=== PATIENT | female | born 1960 | race American Indian/Alaskan Native ===

== ENCOUNTER 2020-02-02 12:04 | Inpatient (IN) | payer MEDICARE, MEDICAID ==
[~2020-02-02 12:04] MED LIST: DIVA-112 PO; DIVA500T69 PO; FURO20 PO; GABA-1181 PO; LEVO100T13 PO; NICO7T TD; Paroxetine Hcl PO; TRAZ-252 PO
[2020-02-02] MEDS ORDERED: HALOPERIDOL 5 MG TABLET PO PRN (14:45)
[2020-02-02 14:53] VITALS: BP 138/78
[2020-02-02 16:38] VITALS: BP 100/62
[2020-02-02] MEDS ORDERED: PNEUMOCOCCAL VACCINE POLYVALENT 0.5 ML VIAL [PPSV23] IM ONE (17:15)
[2020-02-02] MEDS ORDERED: ONDANSETRON HCL 4 MG/2 ML VIAL IM PRN (21:15)
[2020-02-02] MEDS: ONDANSETRON HCL 4 MG TABLET PO PRN (21:22)
[2020-02-03 00:57] VITALS: BP 120/83
[2020-02-03] MEDS: ONDANSETRON HCL 4 MG TABLET PO PRN ×2 (06:52→17:25)
[2020-02-03 07:57] LABS: BASOPHILS % (AUTO) 0.9 % (0.0-2.0); EOSINOPHILS % (AUTO) 3.7 % (1.0-6.0); HEMATOCRIT 40.7 % (36-46); HEMOGLOBIN 13.1 g/dL (12.0-16.0); LYMPHOCYTES # (AUTO) 1.6 K/uL (1.0-4.8); LYMPHOCYTES % (AUTO) 26.3 % (22.0-44.0); MEAN CORPUSCULAR HEMOGLOBIN 30.2 pg (26.0-34.0); MEAN CORPUSCULAR HGB CONC 32.1 G/dL (31.0-37.0); MEAN CORPUSCULAR VOLUME 94 fL (80-100); MONOCYTES # (AUTO) 0.4 K/uL (0.1-1.0); MONOCYTES % (AUTO) 6.7 % (2.0-9.0); NEUTROPHILS # (AUTO) 3.7 K/uL (1.8-7.7); NEUTROPHILS % (AUTO) 62.4 % (40.0-70.0); PLATELET COUNT (AUTO) 240 K/uL (150-450); RED BLOOD CELL COUNT(AUTO) 4.33 MIL/uL (4.00-5.20); RED CELL DISTRIBUTION WIDTH 17.8 % (11.5-14.5)
[2020-02-03 08:06] LABS: HEMOGLOBIN A1C 5.2 % (3.8-5.6)
[2020-02-03 08:22] LABS: ALANINE AMINOTRANSFERASE 27 U/L (12-78); ALBUMIN 3.2 g/dL (3.4-5.0); ALKALINE PHOSPHATASE 76 U/L (46-116); ANION GAP 7 mmol/L (8-16); ASPARTATE AMINOTRANSFERASE 20 U/L (15-37); BILIRUBIN,TOTAL 0.2 mg/dL (0.1-1.0); CALCIUM, TOTAL 9.6 mg/dL (8.8-10.5); CARBON DIOXIDE 31 mmol/L (22-29); CHLORIDE 104 mmol/L (98-107); CHOL/HDL RATIO 2.4 (3.9-5.7); CHOLESTEROL 204 mg/dL (131-200); CREATININE 0.94 mg/dL (0.60-1.30); GLOMERULAR FILTR. RATE CALC > 60 mL/min (>60); GLUCOSE,RANDOM 94 mg/dL (70-110); HDL CHOLESTEROL 84 mg/dL (40-60); LDL CHOL (CALC.) 99 mg/dL (0-130); SODIUM SERUM 142 mmol/L (136-145); TOTAL PROTEIN, SERUM 7.1 g/dL (6.4-8.2); TRIGLYCERIDES 104 mg/dL (15-150); UREA NITROGEN, BLOOD 13 mg/dL (7-18)
[2020-02-03 08:30] VITALS: BP 144/79
[2020-02-03] MEDS: IBUPROFEN 600 MG TABLET PO PRN ×2 (10:28→22:22)
[2020-02-03] MEDS: LORazepam 2 MG TABLET PO PRN ×2 (10:28→17:25)
[2020-02-03 16:06] VITALS: BP 136/77
[2020-02-03] MEDS: OMEPRAZOLE 20 MG CAPSULE PO SCH (20:39)
[2020-02-04 04:14] VITALS: BP 126/72
[2020-02-04 07:03] VITALS: BP 128/92
[2020-02-04] MEDS: IBUPROFEN 600 MG TABLET PO PRN (07:05)
[2020-02-04] MEDS: LEVOTHYROXINE SODIUM 100 MCG TABLET PO SCH (07:16)
[2020-02-04 08:36] VITALS: BP 122/78
[2020-02-04] MEDS ORDERED: IBUPROFEN 600 MG TABLET PO SCH (09:00)
[2020-02-04] MEDS: GABAPENTIN 300 MG CAPSULE PO SCH ×3 (09:23→16:05)
[2020-02-04] MEDS: FUROSEMIDE 20 MG TABLET PO SCH (09:23)
[2020-02-04] MEDS: LORazepam 2 MG TABLET PO PRN (09:24)
[2020-02-04] MEDS: OMEPRAZOLE 20 MG CAPSULE PO SCH (09:24)
[2020-02-04] MEDS: DIVALPROEX SODIUM 500 MG ER TABLET PO SCH (16:05)
[2020-02-04] MEDS: IBUPROFEN 600 MG TABLET PO SCH ×2 (16:05→20:31)
[2020-02-04 16:08] VITALS: BP 115/77
[2020-02-04] MEDS: TraZODone HCL 50 MG TABLET PO SCH (20:31)
[2020-02-05] VITALS (11 sets, daily range): BP systolic 113–156; BP diastolic 63–85
[2020-02-05] MEDS: LEVOTHYROXINE SODIUM 100 MCG TABLET PO SCH (07:04)
[2020-02-05] MEDS: PARoxetine HCL 10 MG TABLET PO SCH (08:30)
[2020-02-05] MEDS: IBUPROFEN 600 MG TABLET PO SCH ×4 (08:31→20:41)
[2020-02-05] MEDS: OMEPRAZOLE 20 MG CAPSULE PO SCH (08:31)
[2020-02-05] MEDS: GABAPENTIN 300 MG CAPSULE PO SCH ×3 (08:31→16:40)
[2020-02-05] MEDS: ONDANSETRON HCL 4 MG TABLET PO PRN (08:31)
[2020-02-05] MEDS: DIVALPROEX SODIUM 500 MG ER TABLET PO SCH ×2 (08:31→16:40)
[2020-02-05] MEDS: FUROSEMIDE 20 MG TABLET PO SCH (08:39)
[2020-02-05] MEDS: LORazepam 2 MG TABLET PO PRN (10:14)
[2020-02-05] MEDS: TraZODone HCL 50 MG TABLET PO SCH (20:41)
[2020-02-06 05:52] VITALS: BP_SYST 111; BP_SYST 118; BP_DIAS 80; BP_DIAS 91
[2020-02-06] MEDS: LEVOTHYROXINE SODIUM 100 MCG TABLET PO SCH (06:53)
[2020-02-06] MEDS: OMEPRAZOLE 20 MG CAPSULE PO SCH (08:14)
[2020-02-06] MEDS: FUROSEMIDE 20 MG TABLET PO SCH (08:14)
[2020-02-06] MEDS: GABAPENTIN 300 MG CAPSULE PO SCH ×3 (08:14→16:41)
[2020-02-06] MEDS: IBUPROFEN 600 MG TABLET PO SCH ×3 (08:15→16:41)
[2020-02-06] MEDS: PARoxetine HCL 10 MG TABLET PO SCH (08:15)
[2020-02-06] MEDS: DIVALPROEX SODIUM 500 MG ER TABLET PO SCH ×2 (08:15→16:41)
[2020-02-06 08:37] VITALS: BP 136/69
[2020-02-06 16:08] VITALS: BP 133/71
[2020-02-06] MEDS: TraZODone HCL 50 MG TABLET PO SCH (20:33)
[2020-02-07 06:45] VITALS: BP 126/92
[2020-02-07] MEDS: IBUPROFEN 600 MG TABLET PO PRN ×2 (06:49→20:30)
[2020-02-07] MEDS: LEVOTHYROXINE SODIUM 100 MCG TABLET PO SCH (06:51)
[2020-02-07 08:10] VITALS: BP 119/75
[2020-02-07] MEDS: DIVALPROEX SODIUM 500 MG ER TABLET PO SCH ×2 (08:56→16:13)
[2020-02-07] MEDS: FUROSEMIDE 20 MG TABLET PO SCH (08:56)
[2020-02-07] MEDS: OMEPRAZOLE 20 MG CAPSULE PO SCH (08:56)
[2020-02-07] MEDS: GABAPENTIN 300 MG CAPSULE PO SCH ×3 (08:56→16:13)
[2020-02-07] MEDS: PARoxetine HCL 10 MG TABLET PO SCH (08:56)
[2020-02-07 16:24] VITALS: BP 123/76
[2020-02-07 20:27] VITALS: BP 109/79
[2020-02-07] MEDS: TraZODone HCL 50 MG TABLET PO SCH (20:30)
[2020-02-08] MEDS: ZOLPIDEM TARTRATE 10 MG TABLET PO PRN (00:22)
[2020-02-08] MEDS: IBUPROFEN 600 MG TABLET PO PRN ×2 (06:55→20:00)
[2020-02-08] MEDS: LEVOTHYROXINE SODIUM 100 MCG TABLET PO SCH (06:55)
[2020-02-08 07:00] VITALS: BP 128/91
[2020-02-08] MEDS: GABAPENTIN 300 MG CAPSULE PO SCH ×3 (08:20→16:36)
[2020-02-08] MEDS: DIVALPROEX SODIUM 500 MG ER TABLET PO SCH ×2 (08:20→16:36)
[2020-02-08] MEDS: OMEPRAZOLE 20 MG CAPSULE PO SCH (08:20)
[2020-02-08] MEDS: FUROSEMIDE 20 MG TABLET PO SCH (08:21)
[2020-02-08] MEDS: ONDANSETRON HCL 4 MG TABLET PO PRN (08:21)
[2020-02-08] MEDS: PARoxetine HCL 10 MG TABLET PO SCH (08:21)
[2020-02-08 08:42] VITALS: BP 123/91
[2020-02-08] MEDS ORDERED: LACTULOSE 20 GM/30 ML SOLUTION UDCUP PO PRN (09:15)
[2020-02-08] MEDS ORDERED: BISACODYL 5 MG EC TABLET PO PRN (09:15)
[2020-02-08 16:08] VITALS: BP 130/71
[2020-02-08 19:54] VITALS: BP 112/76
[2020-02-08] MEDS: TraZODone HCL 50 MG TABLET PO SCH (20:36)
[2020-02-09 00:58] VITALS: BP 121/66
[2020-02-09] MEDS: ZOLPIDEM TARTRATE 10 MG TABLET PO PRN (00:58)
[2020-02-09] MEDS: IBUPROFEN 600 MG TABLET PO PRN ×2 (06:43→23:57)
[2020-02-09] MEDS: LEVOTHYROXINE SODIUM 100 MCG TABLET PO SCH (06:43)
[2020-02-09 07:43] VITALS: BP 139/70
[2020-02-09] MEDS: DIVALPROEX SODIUM 500 MG ER TABLET PO SCH ×2 (08:22→17:40)
[2020-02-09] MEDS: OMEPRAZOLE 20 MG CAPSULE PO SCH (08:22)
[2020-02-09] MEDS: FUROSEMIDE 20 MG TABLET PO SCH (08:22)
[2020-02-09] MEDS: GABAPENTIN 300 MG CAPSULE PO SCH ×3 (08:22→17:40)
[2020-02-09] MEDS: PARoxetine HCL 10 MG TABLET PO SCH (08:22)
[2020-02-09] MEDS: ONDANSETRON HCL 4 MG TABLET PO PRN (08:29)
[2020-02-09 09:00] VITALS: BP 139/70
[2020-02-09] MEDS: DOCUSATE SODIUM 250 MG CAPSULE PO PRN ×2 (11:05→17:00)
[2020-02-09] MEDS: HydrOXYzine PAMOATE 25 MG CAPSULE PO PRN (13:07)
[2020-02-09 16:48] VITALS: BP 110/72
[2020-02-09] MEDS: TraZODone HCL 50 MG TABLET PO SCH (21:07)
[2020-02-10] MEDS: LEVOTHYROXINE SODIUM 100 MCG TABLET PO SCH (06:30)
[2020-02-10 06:38] VITALS: BP 123/77
[2020-02-10 07:21] VITALS: BP 119/86
[2020-02-10] MEDS: IBUPROFEN 600 MG TABLET PO PRN ×4 (07:29→16:20)
[2020-02-10] MEDS: GABAPENTIN 300 MG CAPSULE PO SCH ×3 (08:28→16:04)
[2020-02-10] MEDS: OMEPRAZOLE 20 MG CAPSULE PO SCH (08:28)
[2020-02-10] MEDS: DIVALPROEX SODIUM 500 MG ER TABLET PO SCH ×2 (08:28→16:04)
[2020-02-10] MEDS: PARoxetine HCL 10 MG TABLET PO SCH (08:28)
[2020-02-10] MEDS: FUROSEMIDE 20 MG TABLET PO SCH (08:28)
[2020-02-10] MEDS: DOCUSATE SODIUM 250 MG CAPSULE PO PRN (08:28)
[2020-02-10 09:26] VITALS: BP 118/82
[2020-02-10] MEDS ORDERED: FLUTICASONE PROPIONATE 50 MCG/SPRAY 16 GM NASAL SPRAY NASAL PRN (13:45)
[2020-02-10] MEDS: SODIUM CHLORIDE 0.65% 44 ML NASAL SPRAY NASAL PRN (15:48)
[2020-02-10 16:17] VITALS: BP 123/77
[2020-02-10] MEDS: TraZODone HCL 50 MG TABLET PO SCH (20:21)
[2020-02-11 01:26] VITALS: BP 127/71
[2020-02-11] MEDS: HydrOXYzine PAMOATE 25 MG CAPSULE PO PRN ×2 (01:28→13:53)
[2020-02-11] MEDS: IBUPROFEN 600 MG TABLET PO PRN ×2 (01:28→08:42)
[2020-02-11] MEDS: LEVOTHYROXINE SODIUM 100 MCG TABLET PO SCH (06:27)
[2020-02-11 08:12] VITALS: BP 119/79
[2020-02-11] MEDS: PARoxetine HCL 10 MG TABLET PO SCH (08:18)
[2020-02-11] MEDS: FUROSEMIDE 20 MG TABLET PO SCH (08:18)
[2020-02-11] MEDS: OMEPRAZOLE 20 MG CAPSULE PO SCH (08:18)
[2020-02-11] MEDS: DIVALPROEX SODIUM 500 MG ER TABLET PO SCH ×2 (08:18→16:29)
[2020-02-11] MEDS: GABAPENTIN 300 MG CAPSULE PO SCH ×3 (08:18→16:29)
[2020-02-11] MEDS: DOCUSATE SODIUM 250 MG CAPSULE PO PRN (08:41)
[2020-02-11] MEDS: SODIUM CHLORIDE 0.65% 44 ML NASAL SPRAY NASAL PRN (08:42)
[2020-02-11 17:28] VITALS: BP 109/72
[2020-02-11] MEDS: TraZODone HCL 50 MG TABLET PO SCH (20:31)
[2020-02-12 05:05] VITALS: BP 153/94
[2020-02-12] MEDS: IBUPROFEN 600 MG TABLET PO PRN ×3 (05:10→18:52)
[2020-02-12 05:28] VITALS: BP 122/90
[2020-02-12] MEDS: SODIUM CHLORIDE 0.65% 44 ML NASAL SPRAY NASAL PRN (06:33)
[2020-02-12] MEDS: LEVOTHYROXINE SODIUM 100 MCG TABLET PO SCH (06:33)
[2020-02-12] MEDS: DIVALPROEX SODIUM 500 MG ER TABLET PO SCH ×2 (08:58→16:28)
[2020-02-12] MEDS: FUROSEMIDE 20 MG TABLET PO SCH (08:58)
[2020-02-12] MEDS: GABAPENTIN 300 MG CAPSULE PO SCH ×3 (08:58→16:28)
[2020-02-12] MEDS: PARoxetine HCL 10 MG TABLET PO SCH (08:58)
[2020-02-12] MEDS: OMEPRAZOLE 20 MG CAPSULE PO SCH (08:58)
[2020-02-12 09:03] VITALS: BP 120/78
[2020-02-12 16:10] VITALS: BP 135/87
[2020-02-12] MEDS: TraZODone HCL 50 MG TABLET PO SCH (20:30)
[2020-02-13] MEDS: IBUPROFEN 600 MG TABLET PO PRN ×2 (01:42→08:21)
[2020-02-13 01:46] VITALS: BP 115/76
[2020-02-13] MEDS: DOCUSATE SODIUM 250 MG CAPSULE PO PRN ×2 (01:50→08:21)
[2020-02-13] MEDS: LEVOTHYROXINE SODIUM 100 MCG TABLET PO SCH (06:25)
[2020-02-13] MEDS: OMEPRAZOLE 20 MG CAPSULE PO SCH (08:20)
[2020-02-13 08:21] VITALS: BP 126/71
[2020-02-13] MEDS: PARoxetine HCL 10 MG TABLET PO SCH (08:21)
[2020-02-13] MEDS: DIVALPROEX SODIUM 500 MG ER TABLET PO SCH (08:21)
[2020-02-13] MEDS: FUROSEMIDE 20 MG TABLET PO SCH (08:21)
[2020-02-13] MEDS: GABAPENTIN 300 MG CAPSULE PO SCH ×2 (08:21→13:10)
[2020-02-13] MEDS ORDERED: GABA-1181 PO (13:45)
[2020-02-13] MEDS ORDERED: OMEP20 PO (13:46)
== END 2020-02-13 13:30 | disposition home or self-care (01) | DRG 885 ==
LOC: B2X 14:31
PROVIDERS: ADMIT Psychiatry & Neurology Child & Adolescent Psychiatry; ATTEND Psychiatry & Neurology Child & Adolescent Psychiatry
DX: F31.4 Bipolar disorder, current episode depressed, severe, without psychotic features (principal); I11.0 Hypertensive heart disease with heart failure; E03.9 Hypothyroidism, unspecified; E78.5 Hyperlipidemia, unspecified; I50.9 Heart failure, unspecified; K52.9 Noninfective gastroenteritis and colitis, unspecified; E78.00 Pure hypercholesterolemia, unspecified; G62.9 Polyneuropathy, unspecified; E11.40 Type 2 diabetes mellitus with diabetic neuropathy, unspecified; J30.9 Allergic rhinitis, unspecified; K21.9 Gastro-esophageal reflux disease without esophagitis; K59.00 Constipation, unspecified; M19.90 Unspecified osteoarthritis, unspecified site; F41.1 Generalized anxiety disorder; Z88.5 Allergy status to narcotic agent
CPT/HCPCS: 83036; 87081; Q0162